=== PATIENT | female | born 1985 | race Caucasian/White ===

== ENCOUNTER → 2024-10-26 | Outpatient (CLI) | payer MEDICAID, SELFPAY ==
--- NOTE | 2024-10-26 15:46 | RAD_ITS ---
PROCEDURE: THORACIC SPINE 3 VIEWS 10/26/2024 REASON FOR EXAM: RADICULOPATHY, THORACIC REGION TECHNIQUE: THORACIC SPINE 3 VIEWS COMPARISON: No FINDINGS: Mild thoracic lumbar scoliosis. Multilevel disc space narrowing and osteophyte formation. No acute bone, soft tissue, or lung pathology. RAD/Thoracic Spine 3 Views IMPRESSION: Mild thoracic spine scoliosis and degeneration. Reading Location: [place] [id number]
--- NOTE | 2024-10-26 15:46 | RAD_ITS ---
PROCEDURE: THORACIC SPINE 3 VIEWS 10/26/2024 REASON FOR EXAM: RADICULOPATHY, THORACIC REGION TECHNIQUE: THORACIC SPINE 3 VIEWS COMPARISON: No FINDINGS: Mild thoracic lumbar scoliosis. Multilevel disc space narrowing and osteophyte formation. No acute bone, soft tissue, or lung pathology. RAD/Thoracic Spine 3 Views IMPRESSION: Mild thoracic spine scoliosis and degeneration. Reading Location: [place] [id number]
== END | disposition home or self-care (01) ==
PROVIDERS: Referring Provider Anesthesiology Pain Medicine; Visit Provider Anesthesiology Pain Medicine
DX: M54.14 Radiculopathy, thoracic region (principal)
CPT/HCPCS: 72072